=== PATIENT | male | born 1975 | race Two or more races ===

== ENCOUNTER 2017-02-18 17:11 | Emergency (ER) | payer OTHER ==
[~2017-02-18] VITALS: Ht 182.9 cm; Wt 79.4 kg
[2017-02-18] MEDS ORDERED: IV NORMAL SALINE 1000ML BAG 1,000 ML IV ONE (17:30)
[2017-02-18 17:33] LABS: BASO % 0 % (0-3); EOS % 2 % (0-3); HEMOGLOBIN 14.4 g/dL (13.0-17.5); LYMPH # 2.5 x10^3/uL (1.0-4.8); LYMPH % 24 % (24-48); MEAN CORPUSCULAR HEMOGLOBIN 30 pg (25-35); MEAN CORPUSCULAR HGB CONC 34 g/dL (31-37); MEAN CORPUSCULAR VOLUME 89 fL (79-100); MONO % 11 % (0-9); NEUT % 62 % (31-73); PLATELET COUNT 289 x10^3/uL (140-400); RED BLOOD COUNT 4.83 x10^6/uL (4.30-5.70); RED CELL DISTRIBUTION WIDTH 13.1 % (11.5-14.5); WHITE BLOOD COUNT 10.2 x10^3/uL (4.0-11.0)
[2017-02-18 17:55] LABS: CALCIUM 9.3 mg/dL (8.5-10.1); CREATININE 1.2 mg/dL (0.7-1.3); GFR 66.1
[2017-02-18 18:13] LABS: BARBITURATES NEG (NEG); BENZODIAZEPINES NEG (NEG); CANNABINOIDS NEG (NEG); COCAINE NEG (NEG); ETHANOL, URINE NEG (NEG); METHADONE NEG (NEG); OPIATES NEG (NEG); PHENCYCLIDINE NEG (NEG)
--- NOTE | 2017-02-18 18:16 | PHYS DOC ---
Past Medical History Past Medical History: A-Fib Past Surgical History: Other Additional Past Surgical Histo: CARDIAC CATH Alcohol Use: None Drug Use: None Adult General Chief Complaint Chief Complaint: CHEST PAIN-CARDIAC NATURE HPI HPI 41-year-old male who is presenting with some ongoing palpitations and feeling as though he is in atrial fibrillation for the last 4-5 hours. Patient does have history of paroxysmal A. fib that was diagnosed 2 years ago. Patient had a heart catheterization and echocardiogram at that time that were unremarkable. Patient takes 100 mg of metoprolol daily and flecainide as needed for his atrial fibrillation. Patient did take a dose of flecainide prior to arrival and states that it did not help. He denies any recent drug or alcohol use. He denies any dizziness or lightheadedness. He denies any chest pain or SOB. Review of Systems Review of Systems Constitutional: Denies fever or chills [] Eyes: Denies change in visual acuity, redness, or eye pain [] HENT: Denies nasal congestion or sore throat [] Respiratory: Denies cough or shortness of breath [] Cardiovascular: No additional information not addressed in HPI [] GI: Denies abdominal pain, nausea, vomiting, bloody stools or diarrhea [] : Denies dysuria or hematuria [] Musculoskeletal: Denies back pain or joint pain [] Integument: Denies rash or skin lesions [] Neurologic: Denies headache, focal weakness or sensory changes [] Endocrine: Denies polyuria or polydipsia [] Current Medications Current Medications Current Medications Medications (Trade) Dose Ordered Sig/Leandra Start Time Stop Time Status Last Admin Dose Admin Sodium Chloride (Iv Sodium Chloride 0.9% 1000ml Bag) 1,000 ml @ 1,000 mls/hr 1X ONCE 02/18/17 17:30 02/18/17 18:29 DC 02/18/17 17:34 1,000 MLS/HR Allergies Allergies Allergies Coded Allergies Type Severity Reaction Last Updated Verified Tetanus Vaccines and Toxoid Allergy Intermediate 02/18/17 Yes Physical Exam Physical Exam Constitutional: Well developed, well nourished, no acute distress, non-toxic appearance. [] HENT: Normocephalic, atraumatic, bilateral external ears normal, oropharynx moist, no oral exudates, nose normal. [] Eyes: PERRLA, EOMI, conjunctiva normal, no discharge. [] Neck: Normal range of motion, no tenderness, supple, no stridor. [] Cardiovascular:Heart rate regular with irregular rhythm, no murmur [] Lungs & Thorax: Bilateral breath sounds clear to auscultation [] Abdomen: Bowel sounds normal, soft, no tenderness, no masses, no pulsatile masses. [] Skin: Warm, dry, no erythema, no rash. [] Back: No tenderness, no CVA tenderness. [] Extremities: No tenderness, no cyanosis, no clubbing, ROM intact, no edema. [] Neurologic: Alert and oriented X 3, normal motor function, normal sensory function, no focal deficits noted. [] Psychologic: Affect normal, judgement normal, mood normal. [] Current Patient Data Vital Signs Vital Signs Date Time Temp Pulse Resp B/P Pulse Ox O2 Delivery O2 Flow Rate FiO2 02/18/17 18:22 81 17 134/77 99 Room Air 02/18/17 17:15 98.1 98.1 Lab Values Laboratory Tests Test 02/18/17 17:25 02/18/17 17:50 White Blood Count 10.2x10^3/uL (4.0-11.0) Red Blood Count 4.83x10^6/uL (4.30-5.70) Hemoglobin 14.4g/dL (13.0-17.5) Hematocrit 43.0% (39.0-53.0) Mean Corpuscular Volume 89fL (79-100) Mean Corpuscular Hemoglobin 30pg (25-35) Mean Corpuscular Hemoglobin Concent 34g/dL (31-37) Red Cell Distribution Width 13.1% (11.5-14.5) Platelet Count 289x10^3/uL (140-400) Neutrophils (%) (Auto) 62% (31-73) Lymphocytes (%) (Auto) 24% (24-48) Monocytes (%) (Auto) 11% (0-9) H Eosinophils (%) (Auto) 2% (0-3) Basophils (%) (Auto) 0% (0-3) Neutrophils # (Auto) 6.4x10^3uL (1.8-7.7) Lymphocytes # (Auto) 2.5x10^3/uL (1.0-4.8) Monocytes # (Auto) 1.1x10^3/uL (0.0-1.1) Eosinophils # (Auto) 0.2x10^3/uL (0.0-0.7) Basophils # (Auto) 0.0x10^3/uL (0.0-0.2) Sodium Level 140mmol/L (136-145) Potassium Level 4.0mmol/L (3.5-5.1) Chloride Level 104mmol/L (98-107) Carbon Dioxide Level 27mmol/L (21-32) Anion Gap 9 (6-14) Blood Urea Nitrogen 18mg/dL (8-26) Creatinine 1.2mg/dL (0.7-1.3) Estimated GFR (Cockcroft-Gault) 66.1 Glucose Level 121mg/dL (70-99) H Calcium Level 9.3mg/dL (8.5-10.1) Phosphorus Level 3.7mg/dL (2.6-4.7) Magnesium Level 2.1mg/dL (1.8-2.4) Troponin I Quantitative < 0.017ng/mL (0.000-0.055) Urine Opiates Screen Neg (NEG) Urine Methadone Screen Neg (NEG) Urine Barbiturates Neg (NEG) Urine Phencyclidine Screen Neg (NEG) Urine Amphetamine/Methamphetamine Neg (NEG) Urine Benzodiazepines Screen Neg (NEG) Urine Cocaine Screen Neg (NEG) Urine Cannabinoids Screen Neg (NEG) Urine Ethyl Alcohol Neg (NEG) Laboratory Tests 02/18/17 17:25 Laboratory Tests 02/18/17 17:25 EKG EKG EKG as interpreted by me shows sinus arrhythmia with a rate of 99 bpm. P waves are seen. There are no acute ischemic changes. QtC interval is prolonged at 517 ms. This EKG does not meet STEMI criteria. Radiology/Procedures Radiology/Procedures Portable one view of the chest as interpreted by me does not reveal any acute cardiopulmonary process. Course & Med Decision Making Course & Med Decision Making Pertinent Labs and Imaging studies reviewed. (See chart for details) This 41-year-old male with ongoing sinus arrhythmia has laboratory workup that is unrevealing. Magnesium and phosphorus levels are also normal. His cardiac enzymes are negative. An IV fluid bolus was given. His EKG reveals a sinus arrhythmia but no other acute findings. Portal one view of his chest did not reveal any acute process. Laboratory workup is unrevealing. Patient was able later on the department without difficulty. He still has slight sensation of palpitations but no other symptoms. I discussed his situation with the program advisor, Dr. Lind, who agreed that the patient be safe to be discharged at this time to follow-up with his regular program advisor for Holter monitor. I counseled him to continue drinking plenty of fluids and return to ER if he develops any worsening of his palpitations, shortness of breath, or feels as though he could lose consciousness. Dragon Disclaimer Dragon Disclaimer This electronic medical record was generated, in whole or in part, using a voice recognition dictation system. Departure Departure Impression: Primary Impression: Sinus arrhythmia Disposition: 01 HOME, SELF-CARE Admitting Physician: Other Condition: STABLE Referrals: DEB TILLMAN (PCP) Patient Instructions: Cardiac Arrhythmia Additional Instructions: Please continue to take all your medication as prescribed and continue aspirin therapy daily. Follow up with your program advisor in the next 1-2 days to be evaluated for a nuclear monitoring technician that you can wear. Return to the ER if you develop any worsening of your symptoms or feel as though you have worsening shortness of breath or feel as though you could lose consciousness. YUN PUGA DO Feb 18, 2017 18:16
[2017-02-18 18:22] VITALS: BP 134/77
--- NOTE | 2017-02-19 06:17 | EKG ---
[facility] [address] [place] [address] Test Date: 2017-02-18 Test Time: 17:19:21 Pat Name: AMBER VELOZ Department: Room: Gender: M Air [employer] Provider: : 1975 Requested By: YUN PUGA Order Number: [id number] Reading MD: Lashon Sanchez Measurements Intervals [place] Rate: 99 P: [place]: QRS: 55 QRSD: 90 T: 38 QT: 398 QTc: 517 Interpretive Statements SINUS RHYTHM, PROLONGED QT RI6.01 No previous ECG available for comparison Electronically Signed On 02-19-2017 19:50:46 CDT by Lashon Sanchez
--- NOTE | 2017-02-19 07:44 | RAD ---
Portable chest, 02/18/2017: History: Chest pain The heart size and pulmonary vascularity are normal. There is minimal scarring over the pulmonary apices. No acute infiltrates are seen. There is no evidence of pleural fluid. IMPRESSION: No acute cardiopulmonary abnormality is detected.
== END 2017-02-18 18:55 | disposition home or self-care (01) ==
LOC: ER 17:11
DX: I49.8 Other specified cardiac arrhythmias (principal); I48.0 Paroxysmal atrial fibrillation; Z88.7 Allergy status to serum and vaccine; Z79.899 Other long term (current) drug therapy
CPT/HCPCS: 36415; 71010; 80048; 83735; 84100; 84484; 85027; 93005; 96360; 99285; G0481; J7030